=== PATIENT | female | born 1980 | race American Indian/Alaskan Native ===

== ENCOUNTER 2021-04-08 02:23 | Emergency (ER) | payer SELFPAY ==
[2021-04-08] MEDS ORDERED: EPINEPHrine RACEMIC 2.25% 0.5ML NEBU IH ONE (03:00)
[2021-04-08] MEDS ORDERED: SODIUM CHLORIDE 0.9% 1000 ML 1,000 ML IV ONE (03:01)
--- NOTE | 2021-04-08 03:14 | Emergency Department Report ---
HPI - General Chief Complaint: Dyspnea/Respdistress Time Seen by Provider: 04/08/21 02:55 - HPI HPI: This is a 41-year-old -[place]cu[place] female presents to the emergency department via EMS from home with complaint of a 1 hour history of shortness of breath, wheezing. The patient got the first dose of her Covid vaccine series yesterday. This evening she says that she ate a very flavored Nutrigrain bar and some type of avila drink prior to the symptoms starting. She denies any fever, chest pain, lower extremity swelling. She is a smoker but denies any illicit drug use. She received 125 mg of Solu-Medrol, 2 g of magnesium, 2 doses of epinephrine, and albuterol in route with EMS. No recent travel or sick contacts at home. ED Past Medical Hx - Past Medical History Additional medical history: torn ligament shoulder, gastric ulcers - Surgical History Additional Surgical History: - Social History Smoking Status: Never Smoker Substance Use Type: Marijuana - Medications Home Medications: Home Medications Medication Instructions Recorded Confirmed Last Taken Type Metoclopramide [Reglan] 10 mg PO ACHS #30 tablet 03/05/20 Unknown Rx diphenhydrAMINE [Benadryl CAP] 25 mg PO Q8HR PRN #30 capsule 03/05/20 Unknown Rx Albuterol Mdi (or & Nicu Only) 2 puff IH QID PRN #8.5 gram 04/08/21 Unknown Rx [ProAir HFA Inhaler] EPINEPHrine [Epipen] 0.3 mg IJ ONCE PRN #1 auto.injct 04/08/21 Unknown Rx predniSONE [Deltasone] 20 mg PO BID #8 tab 04/08/21 Unknown Rx ED Review of Systems ROS: Stated complaint: ANAPHYLAXIS/LORIN Other details as noted in HPI Comment: All other systems reviewed and negative Constitutional: denies: chills, fever Eyes: denies: eye pain, vision change ENT: denies: ear pain, throat pain Respiratory: shortness of breath, wheezing Cardiovascular: denies: chest pain, palpitations Gastrointestinal: denies: abdominal pain, vomiting Genitourinary: denies: dysuria, discharge Musculoskeletal: denies: back pain, arthralgia Skin: denies: rash Neurological: denies: headache, weakness Physical Exam - Physical Exam Vital Signs: Vital Signs 04/08/21 02:30 Temperature 98.3 F Pulse Rate 82 Respiratory 17 Rate Blood Pressure 151/86 [Left] O2 Sat by Pulse 99 Oximetry Physical Exam: GENERAL: The patient is well-developed well-nourished. HENT: Normocephalic. Atraumatic. Patient has moist mucous membranes. EYES: Extraocular motions are intact. NECK: Supple. Trachea is midline. CHEST/LUNGS: Mild to moderate wheezing throughout the chest. Mild stridor heard. Tachypnea. HEART/CARDIOVASCULAR: Regular. There is no tachycardia. There is no murmur. ABDOMEN: Abdomen is soft, nontender. Patient has normal bowel sounds. SKIN: Skin is warm and dry. NEURO: The patient is awake, alert, and oriented. The patient is cooperative. The patient has no focal neurologic deficits. Normal speech. MUSCULOSKELETAL: There is no tenderness or deformity. There is no limitation range of motion. ED Course Vital Signs 04/08/21 02:30 Temperature 98.3 F Pulse Rate 82 Respiratory 17 Rate Blood Pressure 151/86 [Left] O2 Sat by Pulse 99 Oximetry - Reevaluation(s) Reevaluation #1: 04/08/21 05:34 Patient appears improved after racemic epi, gentle IV fluid, and a dose of Benadryl. ED Medical Decision Making - Lab Data Result diagrams: 04/08/21 03:12 04/08/21 03:12 - EKG Data -: EKG Interpreted by Me EKG shows normal: sinus rhythm, axis, intervals, QRS complexes, ST-T waves Rate: normal - EKG Data When compared to previous EKG there are: previous EKG unavailable Interpretation: normal EKG - Radiology Data Radiology results: image reviewed interpreted by me: Chest x-ray does not show any acute process. There are no pleural effusions, obvious pneumonia and there is no pneumothorax. No widened mediastinum. - Medical Decision Making This patient presented with a complaint of shortness of breath, wheezing and coughing that started about 1 hour prior to presentation. On examination patient does have moderate bronchospasm and has some mild stridor. The patient was given Solu-Medrol, magnesium, epinephrine and albuterol in route with EMS. Upon arrival here patient was given supplemental oxygen via nasal cannula, racemic epi, IV fluid and was given a dose of Benadryl. The patient does not have any history of asthma, so there is concern that the patient could have had an allergic reaction to something. If it was a reaction to the patient's Covid vaccination from yesterday, it would be a delayed reactio n. It also could be from some new food she tried this evening. Nonetheless, the patient was reevaluated after treatment and is feeling improved. Chest x-ray does not show any pneumonia, pleural effusions, widened mediastinum, pneumothorax, or any other acute process. Patient's labs have been mostly unremarkable including CBC, metabolic panel, proBNP, other than a mild leukocytosis of 16,000. The patient was reevaluated multiple times over multiple hours. Her supplemental oxygen was removed and she did not have any oxygen desaturation. The patient was also able to ambulate in the emergency department without desaturation or increased work of breathing. For all these reasons patient ap pears safe for discharge home at this time. She has been given a prescription for steroids and an albuterol inhaler and an EpiPen. She will follow up with primary care and will return to the ER with any worsening of her symptoms or with any acute distress. Critical Care Time: No Critical care attestation.: If time is entered above; I have spent that time in minutes in the direct care of this critically ill patient, excluding procedure time. ED Disposition Clinical Impression: Bronchospasm, acute, Hypertension, Allergic reaction Disposition: 01 HOME / SELF CARE / HOMELESS Is pt being admited?: No Condition: Stable Instructions: Bronchospasm, Adult, How to Use an Auto-Injector Pen, Allergies, Adult, Managing Your Hypertension, Hypertension (ED) Additional Instructions: Please follow-up with a primary care physician in the next few days. I have given you a referral for a local primary care physician, Dr. Barry, and a primary care clinic, [facility]. Please take all medications as prescribed. I have given you a prescription for an EpiPen. This medication should only be used with signs/symptoms of anaphylaxis such as throat closing, tongue swelling, or severe shortness of breath from an allergic reaction. If you have to use the EpiPen, call 911 or get to the closest emergency department immediately afterwards. Return to the emergency department with any worsening of your symptoms, new or concerning symptoms not addressed during this current emergency department visit, or with any acute distress. Prescriptions: predniSONE [Deltasone] 20 mg PO BID #8 tab EPINEPHrine [Epipen] 0.3 mg IJ ONCE PRN #1 auto.injct PRN Reason: Anaphylaxis Albuterol Mdi (or & Nicu Only) [ProAir HFA Inhaler] 2 puff IH QID PRN #8.5 gram PRN Reason: Shortness Of Breath Referrals: [facility] [Provider Group] - 3-5 Days MARY BARRY MD [Staff Physician] - 3-5 Days
[2021-04-08] MEDS ORDERED: diphenhydrAMINE 50 MG/ML VIAL IV ONE (03:33)
[2021-04-08 04:05] LABS: Hemoglobin 13.9 gm/dl (10.1-14.3); Mean Corpuscular HGB Conc 34 % (30-34); Mean Corpuscular Volume 95 fl (79-97); Platelet Count 299 K/mm3 (140-440); Red Blood Count 4.29 M/mm3 (3.65-5.03); Red Cell Distribution Width 15.3 % (13.2-15.2)
--- NOTE | 2021-04-08 04:06 | XRay Report ---
CHEST 1 VIEW 04/08/2021 4:01 AM INDICATION / CLINICAL INFORMATION: SOB. COMPARISON: 03/05/2020 FINDINGS: SUPPORT DEVICES: None. HEART / MEDIASTINUM: Unchanged. LUNGS / PLEURA: No significant pulmonary or pleural abnormality. No pneumothorax. ADDITIONAL FINDINGS: No significant additional findings. IMPRESSION: Stable chest. Signer Name: Andrea Dan MD Signed: 04/08/2021 4:01 AM Workstation Name: [id number]
[2021-04-08 04:14] LABS: INR 0.94 (0.87-1.13)
[2021-04-08 04:28] LABS: Alanine Aminotransferase 21 units/L (7-56); Albumin 4.3 g/dL (3.9-5); Blood Urea Nitrogen 6 mg/dL (7-17); Calcium 9.6 mg/dL (8.4-10.2); Hemolysis Index 8
[2021-04-08 04:37] LABS: BUN/Creatinine Ratio 9
[2021-04-08 06:49] LABS: Anisocytosis 1+; Platelet Estimate Consistent w Auto; Total Cells Counted 100
[2021-04-08 07:00] VITALS: BP 127/62
--- NOTE | 2021-04-11 08:49 | Electrocardiograph Report ---
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
== END 2021-04-08 06:50 | disposition home or self-care (01) ==
LOC: ED 02:23
DX: T78.40XA Allergy, unspecified, initial encounter (principal); J98.01 Acute bronchospasm; I10 Essential (primary) hypertension; F12.90 Cannabis use, unspecified, uncomplicated; Z79.899 Other long term (current) drug therapy; Z88.8 Allergy status to other drugs, medicaments and biological substances; Z98.890 Other specified postprocedural states; X58.XXXA Exposure to other specified factors, initial encounter
CPT/HCPCS: 36415; 71045; 80053; 83880; 85007; 85025; 85610; 93005; 94640; 94644; 96361; 96374; J1200; J7030

== ENCOUNTER 2021-04-08 23:14 | Emergency (ER) | payer MEDICAID ==
[2021-04-09] MEDS ORDERED: ASPIRIN 325 MG TAB PO ONE (01:15)
[2021-04-09 01:17] VITALS: BP 160/85
[2021-04-09] MEDS ORDERED: MORPHINE 4 MG/1 ML INJ IV ONE (02:11)
[2021-04-09] MEDS ORDERED: METOCLOPRAMIDE 10 MG/2 ML INJ IV ONE (02:11)
--- NOTE | 2021-04-09 02:16 | Emergency Department Report ---
ED Chest Pain HPI - General Chief Complaint: Chest Pain Stated Complaint: CHEST PAIN/HEADACHE Time Seen by Provider: 04/09/21 02:04 Source: patient Mode of arrival: Wheelchair Limitations: No Limitations - History of Present Illness Initial Comments: This is a 41-year-old -[place] female presents to the emergency department with a complaint of a generalized headache that has been going on since about 1 PM yesterday afternoon. She has tried some [id number]-[id number] pain medications without any relief. She denies any fever, vision change, slurred speech, numbness or paresthesias, or any neurological deficits. The patient also complains of some generalized chest discomfort, but she says that it is radiation of pain from her head down through the neck and shoulders. No shortness of breath currently. The patient was seen here last night for issues with shortness of breath, wheezing, and some mild stridor. The patient received her first dose of the COVID-19 vaccination 2 days ago. Patient was initially seen in the acute waiting room. I explained that we do not have a private room, but I would be happy to start her evaluation and treatment. Patient understands that there are multiple people in the room and some private information may be overheard and she agrees to start evaluation and treatment in acute waiting room. Severity scale (0 -10): 0 - Related Data Previous Rx's Medication Instructions Recorded Last Taken Type Metoclopramide [Reglan] 10 mg PO ACHS #30 tablet 03/05/20 Unknown Rx diphenhydrAMINE [Benadryl CAP] 25 mg PO Q8HR PRN #30 capsule 03/05/20 Unknown Rx Albuterol Mdi (or & Nicu Only) 2 puff IH QID PRN #8.5 gram 04/08/21 Unknown Rx [ProAir HFA Inhaler] EPINEPHrine [Epipen] 0.3 mg IJ ONCE PRN #1 auto.injct 04/08/21 Unknown Rx predniSONE [Deltasone] 20 mg PO BID #8 tab 04/08/21 Unknown Rx Allergies Allergy/AdvReac Type Severity Reaction Status Date / Time famotidine [From Pepcid] AdvReac Vomiting Verified 04/08/21 02:49 Heart Score - HEART Score History: Slightly suspicious EKG: Normal Age: < 45 Risk factors: 1-2 risk factors Troponin: < normal limit HEART Score: 1 - EKG Read Time Time EKG Completed: : EKG Read Time: 01:25 ED Review of Systems ROS: Stated complaint: CHEST PAIN/HEADACHE Other details as noted in HPI Comment: All other systems reviewed and negative Constitutional: denies: chills, fever Eyes: denies: eye pain, vision change ENT: denies: ear pain, throat pain Respiratory: denies: cough, shortness of breath Cardiovascular: chest pain. denies: palpitations Gastrointestinal: denies: abdominal pain, vomiting Genitourinary: denies: dysuria, discharge Musculoskeletal: denies: back pain, joint swelling Skin: denies: rash, lesions Neurological: headache. denies: weakness, numbness, paresthesias ED Past Medical Hx - Past Medical History Previous Medical History?: Yes Additional medical history: torn ligament shoulder, gastric ulcers - Surgical History Past Surgical History?: Yes Additional Surgical History: - Social History Smoking Status: Never Smoker Substance Use Type: Marijuana - Medications Home Medications: Home Medications Medication Instructions Recorded Confirmed Last Taken Type Metoclopramide [Reglan] 10 mg PO ACHS #30 tablet 03/05/20 Unknown Rx diphenhydrAMINE [Benadryl CAP] 25 mg PO Q8HR PRN #30 capsule 03/05/20 Unknown Rx Albuterol Mdi (or & Nicu Only) 2 puff IH QID PRN #8.5 gram 04/08/21 Unknown Rx [ProAir HFA Inhaler] EPINEPHrine [Epipen] 0.3 mg IJ ONCE PRN #1 auto.injct 04/08/21 Unknown Rx predniSONE [Deltasone] 20 mg PO BID #8 tab 04/08/21 Unknown Rx ED Physical Exam - General Limitations: No Limitations - Other Other exam information: GENERAL: The patient is well-developed well-nourished. HENT: Normocephalic. Atraumatic. Patient has moist mucous membranes. EYES: Extraocular motions are intact. Pupils equal reactive to light bilaterally. No nystagmus. NECK: Supple. Trachea is midline. There is some reproducible right-sided paraspinal and trapezius tenderness to palpation with taut musculature. CHEST/LUNGS: Clear to auscultation. There is no respiratory distress noted. HEART/CARDIOVASCULAR: Regular. There is no tachycardia. There is no murmur. ABDOMEN: Abdomen is soft, nontender. Patient has normal bowel sounds. There is no abdominal distention. SKIN: Skin is warm and dry. NEURO: The patient is awake, alert, and oriented. The patient is cooperative. The patient has no focal neurologic deficits. Normal speech. Cranial nerves II through XII grossly intact. No facial asymmetry. No pronator drift or dysmetria. MUSCULOSKELETAL: There is no tenderness or deformity. There is no limitation range of motion. ED Course Vital Signs 04/09/21 01:16 Temperature 98.3 F Pulse Rate 69 Respiratory 19 Rate Blood Pressure 160/85 [Right] O2 Sat by Pulse 100 Oximetry DENTON score - Denton Score Age > 65: (0) No Aspirin use within the Past 7 Days: (0) No 3 or more CAD Risk Factors: (0) No 2 or more Angina events in past 24 hrs: (1) Yes Known CAD with more than 50% Stenosis: (0) No Elevated Cardiac Markers: (0) No ST Deviation Greater than 0.5mm: (0) No DENTON Score: 1 ED Medical Decision Making - Lab Data Result diagrams: 04/09/21 01:24 04/09/21 01:24 Lab Results 04/09/21 04/09/21 Range/Units 01:24 01:24 WBC 14.4 H (4.5-11.0) K/mm3 RBC 4.43 (3.65-5.03) M/mm3 Hgb 14.2 (10.1-14.3) gm/dl Hct 42.3 (30.3-42.9) % MCV 96 (79-97) fl MCH 32 (28-32) pg MCHC 34 (30-34) % RDW 15.6 H (13.2-15.2) % Plt Count 288 (140-440) K/mm3 Lymph % (Auto) 19.1 (13.4-35.0) % [place] % (Auto) 8.0 H (0.0-7.3) % Eos % (Auto) 0.0 (0.0-4.3) % Baso % (Auto) 0.0 (0.0-1.8) % Lymph # (Auto) 2.7 (1.2-5.4) K/mm3 [place] # (Auto) 1.2 H (0.0-0.8) K/mm3 Eos # (Auto) 0.0 (0.0-0.4) K/mm3 Baso # (Auto) 0.0 (0.0-0.1) K/mm3 Seg Neutrophils % 72.9 H (40.0-70.0) % Seg Neutrophils # 10.5 H (1.8-7.7) K/mm3 Sodium 138 (137-145) mmol/L Potassium 4.8 D (3.6-5.0) mmol/L Chloride 101.8 (98-107) mmol/L Carbon Dioxide 23 (22-30) mmol/L Anion Gap 18 mmol/L BUN 9 (7-17) mg/dL Creatinine 0.7 (0.6-1.2) mg/dL Estimated GFR > 60 ml/min BUN/Creatinine Ratio 13 % Glucose 98 (65-100) mg/dL Calcium 9.7 (8.4-10.2) mg/dL Total Bilirubin 0.30 (0.1-1.2) mg/dL AST 79 H (5-40) units/L ALT 51 (7-56) units/L Alkaline Phosphatase 89 (35-129) units/L Troponin T < 0.010 (0.00-0.029) ng/mL Total Protein 7.7 (6.3-8.2) g/dL Albumin 4.5 (3.9-5) g/dL Albumin/Globulin Ratio 1.4 % - EKG Data -: EKG Interpreted by Mo EKG shows normal: sinus rhythm, axis, intervals, QRS complexes, ST-T waves Rate: normal - EKG Data When compared to previous EKG there are: previous EKG unavailable Interpretation: normal EKG - Radiology Data Radiology results: report reviewed CT head without contrast INDICATION : headache. TECHNIQUE: Axial imaging p erformed from the skull apex through the skull base without the use of contrast. All CT scans at this location are performed using CT dose reduction for ALARA by means of automated exposure control. COMPARISON: None FINDINGS: Parenchyma: No mass, stroke or hemorrhage. Ventricles: Ventricles are normal in size and appear symmetric. Soft tissues: Soft tissues including the orbits appear normal. Bones: No acute osseous abnormality. Sinuses: Sinuses and mastoid air cells are clear. IMPRESSION: No acute abnormality. - Medical Decision Making This patient presents with generalized headache, and some right-sided chest discomfort. On examination she has normal heart and lung sounds to auscultation. She does not appear in any respiratory or acute distress. There are no focal, motor or sensory deficits and her cranial nerves are intact. EKG appears normal without any morphology consistent with ST elevation myocardial infarction or any arrhythmia. CT of the head without contrast does not show any hemorrhage, large vessel occlusion, edema, hydrocephalus, or any other acute process. The patient had a chest x-ray done yesterday when I saw her for different symptoms. She does not have any current shortness of breath, and with normal sounding heart and lungs on auscultation I did not feel that we needed to repeat the chest x-ray imaging. Patient's labs have been unremarkable including CBC, metabolic panel and negative troponin. The patient did have a slightly elevated AST level. This was discussed with the patient and she understands to avoid alcohol and Tylenol/acetaminophen use. Patient was given a dose of IV analgesia and Reglan. Almost immediately the patient's symptoms have completely resolved. The patient is low on the heart and DENTON score. She is low on the Wells score criteria and negative on the pulmonary embolism rule out criteria. For all these reasons patient appears safe for discharge home at this time. Her contact information has been sent over to the [facility], and someone from their office should be contacting her shortly for close outpatient follow-up as part of our hospitals of his chest pain protocol. The patient will return to the emergency department with any worsening of her sy mptoms or with any acute distress. Critical Care Time: No Critical care attestation.: If time is entered above; I have spent that time in minutes in the direct care of this critically ill patient, excluding procedure time. ED Disposition Clinical Impression: Atypical chest pain, Elevated AST (SGOT) Headache Qualifiers: Headache type: unspecified Headache chronicity pattern: unspecified pattern Intractability: not intractable Qualified Code(s): R51.9 - Headache, unspecified Hypertension Qualifiers: Hypertension type: primary hypertension Qualified Code(s): I10 - Essential (primary) hypertension Disposition: 01 HOME / SELF CARE / HOMELESS Is pt being admited?: No Condition: Stable Instructions: General Headache Without Cause, Nonspecific Chest Pain, Adult, Hypertension, Adult, Hypertension (ED) Additional Instructions: Please follow-up with your primary care physician in the next few days. One of your liver enzymes, AST, was found to be slightly elevated today. Because of this, please avoid any alcohol or Tylenol/acetaminophen intake, as this can worsen your liver enzymes. I am sending your contact information over to the [facility], and someone from their office should be contacting you shortly for close outpatient follow-up. Just in case, I am giving you a referral for one of their systems test technician, Dr. Shay. Return to the emergency department with any worsening of your symptoms, new or concerning symptoms not addressed during this current emergency department visit, or with any acute distress. Referrals: PRIMARY CARE, [Primary Care Provider] - 2-3 Days MARISOL SHAY MD [Staff Physician] - 2-3 Days Time of Disposition: 03:37 - Assessment Assessment Interval: Baseline - Level of Consciousness 1a. Level of Consciousness: alert/keenly responsive - LOC Questions 1b. LOC Questions: answers both correctly - LOC Command 1c. LOC Commands: performs tasks correctly - Best Gaze 2. Best Gaze: normal - Visual 3. Visual: no visual loss - Facial Palsy 4. Facial Palsy: normal symmetrical movement - Motor Arm 5a. Motor Arm Left: no drift 5b. Motor Arm Right: no drift - Motor Leg 6a. Motor Leg Left: no drift 6b. Motor Leg Right: no drift - Limb Ataxia 7. Limb Ataxia: absent - Sensory 8. Sensory: normal - Best Language 9. Best Language: no aphasia - Dysarthria 10. Dysarthria: normal - Extinction and Inattention 11. Extinction/Inattention: no abnormality - Scoring Total Score: 0 Stroke Severity: No Stroke Symptoms
[2021-04-09 02:39] LABS: Hematocrit 42.3 % (30.3-42.9); Hemoglobin 14.2 gm/dl (10.1-14.3); Lymphocytes # (Auto) 2.7 K/mm3 (1.2-5.4); Lymphocytes % (Auto) 19.1 % (13.4-35.0); Mean Corpuscular HGB Conc 34 % (30-34); Mean Corpuscular Volume 96 fl (79-97); Monocytes # (Auto) 1.2 K/mm3 (0.0-0.8); Platelet Count 288 K/mm3 (140-440); Red Blood Count 4.43 M/mm3 (3.65-5.03); Red Cell Distribution Width 15.6 % (13.2-15.2)
[2021-04-09 02:56] LABS: Alanine Aminotransferase 51 units/L (7-56); Albumin 4.5 g/dL (3.9-5); BUN/Creatinine Ratio 13; Blood Urea Nitrogen 9 mg/dL (7-17); Calcium 9.7 mg/dL (8.4-10.2); Hemolysis Index 6
--- NOTE | 2021-04-09 03:29 | Cat Scan Report ---
CT head without contrast INDICATION : headache. TECHNIQUE: Axial imaging performed from the skull apex through the skull base without the use of con trast. All CT scans at this location are performed using CT dose reduction for ALARA by means of aut omated exposure control. COMPARISON: None FINDINGS: Parenchyma: No mass, stroke or hemorrhage. Ventricles: Ventricles are normal in size and appear symmetric. Soft tissues: Soft tissues including the orbits appear normal. Bones: No acute osseous abnormality. Sinuses: Sinuses and mastoid air cells are clear. IMPRESSION: No acute abnormality. Signer Name: Andrea Dan MD Signed: 04/09/2021 3:25 AM Workstation Name: [id number]
--- NOTE | 2021-04-11 08:52 | Electrocardiograph Report ---
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
== END 2021-04-09 04:00 | disposition home or self-care (01) ==
LOC: ED 23:14
DX: I10 Essential (primary) hypertension (principal); R07.89 Other chest pain; R51.9 Headache, unspecified; R74.01 Elevation of levels of liver transaminase levels; F12.90 Cannabis use, unspecified, uncomplicated; Z79.899 Other long term (current) drug therapy; Z88.8 Allergy status to other drugs, medicaments and biological substances; Z98.890 Other specified postprocedural states
CPT/HCPCS: 36415; 70450; 71045; 80053; 83880; 84484; 85007; 85025; 85610; 93005; 94640; 96361; 96374; 96375; 99284; J1200; J2270; J2765; J7030; 94644

== ENCOUNTER 2021-08-12 13:05 | Emergency (ER) | payer SELFPAY, OTHER ==
[2021-08-12] MEDS ORDERED: ONDANSETRON 4 MG ODT TAB PO ONE (13:56)
[2021-08-12] MEDS ORDERED: ACETAMINOPHEN 325 MG TAB PO ONE (13:57)
--- NOTE | 2021-08-12 13:58 | Emergency Department Report ---
ED N/V/D HPI - General Chief complaint: Nausea/Vomiting/Diarrhea Stated complaint: flu like symptoms Time Seen by Provider: 08/12/21 13:51 Source: EMS Mode of arrival: Stretcher Limitations: No Limitations - History of Present Illness Initial comments: 41-year-old female with a past medical history of obesity and gastric ulcer disease presents to the hospital with complaints of nausea, vomiting, and body aches. Patient tested positive for Covid 3 days ago. She has only received 1 shot of her vaccine series. She complains of generalized body aches and crampy abdominal pain with vomiting and p.o. intolerance. Intermittent fevers reported. She denies diarrhea, cough, or shortness of breath. LMP July 31, 2021 - Related Data Previous Rx's Medication Instructions Recorded Last Taken Type Metoclopramide [Reglan] 10 mg PO ACHS #30 tablet 03/05/20 Unknown Rx diphenhydrAMINE [Benadryl CAP] 25 mg PO Q8HR PRN #30 capsule 03/05/20 Unknown Rx Albuterol Mdi (or & Nicu Only) 2 puff IH QID PRN #8.5 gram 04/08/21 Unknown Rx [ProAir HFA Inhaler] EPINEPHrine [Epipen] 0.3 mg IJ ONCE PRN #1 auto.injct 04/08/21 Unknown Rx predniSONE [Deltasone] 20 mg PO BID #8 tab 04/08/21 Unknown Rx Ondansetron [Zofran Odt] 4 mg PO Q8HR PRN #20 tab.rapdis 08/12/21 Unknown Rx Allergies Allergy/AdvReac Type Severity Reaction Status Date / Time famotidine [From Pepcid] AdvReac Vomiting Verified 04/08/21 02:49 ED Review of Systems ROS: Stated complaint: flu like symptoms Other details as noted in HPI Comment: All other systems reviewed and negative ED Past Medical Hx - Past Medical History Additional medical history: torn ligament shoulder, gastric ulcers - Surgical History Additional Surgical History: - Social History Smoking Status: Never Smoker Substance Use Type: Marijuana - Medications Home Medications: Home Medications Medication Instructions Recorded Confirmed Last Taken Type Metoclopramide [Reglan] 10 mg PO ACHS #30 tablet 03/05/20 Unknown Rx diphenhydrAMINE [Benadryl CAP] 25 mg PO Q8HR PRN #30 capsule 03/05/20 Unknown Rx Albuterol Mdi (or & Nicu Only) 2 puff IH QID PRN #8.5 gram 04/08/21 Unknown Rx [ProAir HFA Inhaler] EPINEPHrine [Epipen] 0.3 mg IJ ONCE PRN #1 auto.injct 04/08/21 Unknown Rx predniSONE [Deltasone] 20 mg PO BID #8 tab 04/08/21 Unknown Rx Ondansetron [Zofran Odt] 4 mg PO Q8HR PRN #20 tab.rapdis 08/12/21 Unknown Rx ED Physical Exam - General Limitations: No Limitations - Other Other exam information: General: Mild distress Head: Atraumatic Eyes: normal appearance ENT: Moist mucous membranes Neck: Normal appearance, no midline tenderness Chest: Clear to auscultation bilaterally CV: Regular rate and rhythm Abdomen: Soft, normal bowel sounds, generalized abdominal tenderness Back: Normal inspection Extremity: Normal inspection, full range of motion Neuro: Alert O x 3, no facial asymmetry, speech clear, no gross motor sensory deficit Psych: Tearful due to not feeling well Skin: No rash ED Course Vital Signs 08/12/21 08/12/21 08/12/21 13:07 14:34 14:35 Temperature 99.1 F 98.7 F Pulse Rate 73 76 Respiratory 18 18 Rate Blood Pressure 146/67 145/69 [Left] O2 Sat by Pulse 100 100 99 Oximetry - Reevaluation(s) Reevaluation #1: 08/12/21 15:30 I was just informed that patient vomited despite Zofran. Labs and IV meds ordered 08/12/21 17:52 I was informed by staff that despite multiple attempts they were unable to secure IV access. Patient actually looks more comfortable after receiving Tylenol and Zofran despite report of vomiting at medication. She received IM Zofran and reports improvement in nausea. She was able to tolerate some p.o. liquids in the ED. vital signs stable ED Medical Decision Making - Medical Decision Making 41-year-old female Covid positive with GI symptoms of nausea vomiting. Patient had a prolonged ED stay given attempts to obtain IV access. However, patient received IM Zofran and is able to tolerate p.o. intake. Patient has stable vital signs. Patient does not have hypoxia or respiratory symptoms is a candidate for outpatient symptomatic treatment with oral hydration. Critical Care Time: No Critical care attestation.: If time is entered above; I have spent that time in minutes in the direct care of this critically ill patient, excluding procedure time. ED Disposition Clinical Impression: COVID-19, Nausea & vomiting Disposition: HOME / SELF CARE / HOMELESS Is pt being admited?: No Does the pt Need Aspirin: No Condition: Stable Instructions: Prevent the Spread of COVID-19 if You Are Sick - CDC, Nausea and Vomiting, Adult Additional Instructions: Take the medication as prescribed. Take Tylenol as needed for pain or fever. Follow-up with your doctor or doctor/clinic provided. Return if symptoms worsen as indicated by your discharge instructions. Prescriptions: Ondansetron [Zofran Odt] 4 mg PO Q8HR PRN #20 tab.rapdis PRN Reason: Nausea And Vomiting Referrals: PRIMARY MD KRYSTA [Primary Care Provider] - 3-5 Days [facility] [Provider Group] - 3-5 Days BRENDAN TOWNSEND MD [Staff Physician] - 3-5 Days Time of Disposition: 18:09
[2021-08-12 14:35] VITALS: BP 145/69
[2021-08-12] MEDS ORDERED: ONDANSETRON 4 MG/2 ML INJ IV ONE (15:30)
[2021-08-12] MEDS ORDERED: SODIUM CHLORIDE 0.9% 1000 ML 1,000 ML IV ONE (15:30)
[2021-08-12] MEDS ORDERED: ONDANSETRON 4 MG/2 ML INJ IM ONE (16:20)
== END 2021-08-12 18:20 | disposition home or self-care (01) ==
LOC: ED 13:05
DX: U07.1 COVID-19 (principal); F12.90 Cannabis use, unspecified, uncomplicated; Z98.890 Other specified postprocedural states; Z79.899 Other long term (current) drug therapy; Z88.8 Allergy status to other drugs, medicaments and biological substances
CPT/HCPCS: 96372; 99283; J2405; J3490; Q0162